=== PATIENT | female | born 1960 | race Caucasian/White ===

== ENCOUNTER → 2017-10-14 16:07 | Outpatient (CLI) | payer BC, SELFPAY ==
--- NOTE | 2017-10-14 | CT_ITS ---
CT abdomen pelvis w con Ordering Physician: Carola Heart MD Patient Age: 57 years: Female HISTORY: ITS.REASON: DIVERTICULITISabdominal pain left lower quadrant TECHNIQUE: Helical CT scanning performed through the abdomen following 75 cc [id number]. Axial sagittal coronal reconstructions on CT workstation COMPARISON :No relevant studies FINDINGS LUNG BASES. Scant dependent atelectasis and minor scarring posterior lung bases. Vague barely evident faint 5 x 3 mm nodule at periphery RLL axial image 61 with more linear appearance on coronal image 37, thus most likely reflecting minimal areas of scarring here. Similar small pleural-based area of density axial slice 16 at the anterior aspect of lingulal measures just over 4 mm size. Other smaller areas of pleural-based focal density noted most likely compatible with scarring.. . Follow-up CT chest suggested for these features. Very Tiny right Bochdalek hernia also noted Liver. Mild diffuse fatty changes with with additional slight focal fatty change adjacent to the falciform ligament anteriorly left lobe. No biliary ductal dilatation. Cholecystectomy. Pancreas satisfactory. Unremarkable. Spleen normal size with granulomatous calcifications. Right Adrenal Nodule: 34 mm AP x22. mm transverse x30 mm height. It slight increasedIndeterminate density on this postcontrast study. Will benefit from follow-up CT- with adrenal protocol scan precontrast; and if needed postcontrast scanning to further evaluate this feature.. The left adrenal is normal. Kidneys. Benign 10 mm renal cyst posterior left kidney. Right kidney unremarkable. No urinary tract calculi or obstruction. . acute diverticulitis at the distal descending colon at its its junction with the sigmoid colon. Nicely seen on coronal images 27-36, and axial images 76-87. There is bowel wall thickening within inflamed very distended diverticulum I believe extending medial from this area on coronal image 32.. Generous inflammatory stranding and hazy appearance throughout the paracolic fatthroughout this region,. No perforation but no discrete abscess as of yet. The extensive diverticulosis throughout the sigmoid colon otherwise noted with numerous diverticuli throughout the descending colon. Images reviewed with Dr. Heart at the monitor, workstation. Mild to moderate stool is seen at the right and transverse colon and less evident at descending colon. Small bowel appears otherwise satisfactory. Scattered diverticuli also seen at the transverse: and with a few at right colon. The become more numerous continuing distally into the descending colon and most extensive diverticulosis at the sigmoid colon. Appendix normal. On the uterus unremarkable no masses. No free fluid at pelvis No free fluid. No free air Dextroscoliosis lumbar spine. Degenerative disc space narrowing and spondylosis most notable L5/S1. And prominent facet hypertrophy at this level yield moderate recess and foraminal encroachment bilateral. Less pronounced facet hypertrophy at levels above this cannot L-spine. \ IMPRESSION 1. ACUTE DIVERTICULITIS.. ... Descending colon at junction with sigmoid colon ... Prominent pericolic inflammation associated with Distended inflamed diverticulum,. No perforation nor discrete abscess at this point 2.. Indeterminate Right Adrenal Nodule measures up to 3.4 cm AP Suggest follow-up CT adrenal protocol pre& if needed postcontrast given the size & appearance right adrenal nodule. It follow-up CT chest at that time warranted as well 3.. Tiny focal densities instantly noted at lung bases. Suspect Most likely related to scarring but would benefit from follow-up.
[2017-10-14 17:03] LABS: Blood Urea Nitrogen 19 mg/dL (7-18); Creatinine,Serum 0.98 mg/dL (0.55-1.02); Estimated Glomerular Filt Rate 59 ml/min (>60); GFR (African American) 71 ML/MIN (>60)
== END ==
PROVIDERS: PCP Family Medicine; Visit Provider Family Medicine
DX: K57.92 Diverticulitis of intestine, part unspecified, without perforation or abscess without bleeding (principal)
CPT/HCPCS: 36415; 74177; 82565; 84520; Q9967

== ENCOUNTER → 2018-10-24 08:16 | Outpatient (CLI) | payer BC, SELFPAY ==
--- NOTE | 2018-10-24 08:18 | MM_ITS ---
MM Dig screening mamm BI w/CAD CAD Screening COMPARISON: Digital mammograms with CAD 01/04/2014 and 05/04/2016 INDICATION: There is no personal or family history of breast cancer TECHNIQUE: Standard CC and MLO images were obtained. R2 CAD reviewed. FINDINGS: Prominent diffuse heterogenic fibroglandular densities are seen throughout both breasts. There are couple benign-appearing microcalcifications in each breast. There are stable benign-appearing nodular density near the axillary tail right breast. There is no suspicious lesion and there are no suspicious microcalcifications. IMPRESSION: Prominent diffuse breast density with no suspicious lesion seen BI-RADS Category: 2 Benign Finding(s) RECOMMENDED FOLLOW-UP: 1YR - 1 YEAR FOLLOW-UP (A letter has been sent to the patient regarding results of the study.)
== END ==
PROVIDERS: PCP Family Medicine; Visit Provider Nurse Practitioner Obstetrics & Gynecology
DX: Z12.31 Encounter for screening mammogram for malignant neoplasm of breast (principal)
CPT/HCPCS: 77067

== ENCOUNTER → 2020-12-13 10:19 | Outpatient (CLI) | payer BC, SELFPAY ==
[2020-12-13 11:30] LABS: Chloride 99 mmol/L (98-107); Sodium 139 mmol/L (136-145)
[2020-12-13 11:32] LABS: Alanine Aminotransferase 24 U/L (12-78); Alkaline Phosphatase 56 U/L (38-126); Aspartate Amino Transferase 33 U/L (14-36); Bilirubin,Total 0.7 mg/dl (0.2-1.3); Blood Urea Nitrogen 25 mg/dl (7-17); Estimated Glomerular Filt Rate 73 ml/min (>60); GFR (African American) 89 ML/MIN (>60)
[2020-12-13 11:33] LABS: Albumin Level 4.7 g/dl (3.5-5.0); Albumin/Globulin Ratio 1.9 (1.1-1.8); Calcium 9.8 mg/dl (8.4-10.2); Carbon Dioxide 34 mmol/L (22.0-30.0); Chol/HDL Ratio 3.3 (1-3.5); Cholesterol 210 mg/dl (140-200); Globulin 2.5 g/dL (1.3-3.2); Glucose 95 mg/dl (74-100); HDL Cholesterol 64 mg/dl (40-60); Total Protein,Serum 7.2 g/dl (6.3-8.2); Triglycerides 140 mg/dl (30-150); VLDL Cholesterol 28 mg/dL (0-40)
[2020-12-13 11:44] LABS: Direct LDL Cholesterol 106.57 mg/dL (100-129)
[2020-12-13 11:51] LABS: Free T4 (Free Thyroxine) 1.38 ng/dl (0.78-2.19)
[2020-12-13 12:04] LABS: Thyroid Stimulating Hormone 1.49 uIU/mL (0.465-4.68)
== END ==
PROVIDERS: Visit Provider Physician Assistant
DX: I10 Essential (primary) hypertension (principal); E89.0 Postprocedural hypothyroidism; Z13.220 Encounter for screening for lipoid disorders; Z79.899 Other long term (current) drug therapy
CPT/HCPCS: 36415; 80053; 80061; 84439; 84443

== ENCOUNTER → 2020-12-14 10:09 | Outpatient (CLI) | payer BC, SELFPAY ==
--- NOTE | 2020-12-14 10:13 | MM_ITS ---
PROCEDURE INFORMATION: Exam: MG Screening 3D Mammography Exam date and time: 12/14/2020 10:13 AM Age: 60 years old Clinical indication: Encounter for screening mammogram for malignant neoplasm of breast TECHNIQUE: Imaging protocol: Screening tomosynthesis and 2D mammography including computer-aided detection (CAD) when performed. COMPARISON: 1. MG SCBI MM Dig screening mamm BI w/CAD 10/24/2018 8:35 AM 2. MG DMSB DIG MAMM-SCREEN WILIAN 05/04/2016 8:28 AM 3. MG DMSB DIG MAMM-SCREEN WILIAN 01/04/2014 8:27 AM FINDINGS: MAMMOGRAPHY: Breast composition: The breasts are heterogeneously dense, which may obscure small masses. Mass: No new suspicious masses. Architectural distortion: No suspicious distortion. Calcifications: No suspicious calcifications. Asymmetric density: None. Skin thickening: None. Axillary adenopathy: None. IMPRESSION: No mammographic evidence of malignancy. Annual screening is recommended unless otherwise clinically indicated. ASSESSMENT: BI-RADS Category 1: Negative
== END ==
PROVIDERS: PCP Family Medicine; Visit Provider Physician Assistant
DX: Z12.31 Encounter for screening mammogram for malignant neoplasm of breast (principal)
CPT/HCPCS: 77063; 77067

== ENCOUNTER → 2021-08-29 11:06 | Outpatient (CLI) | payer BC, SELFPAY | PROVIDERS: Visit Provider Nurse Practitioner | DX: Z20.822 Contact with and (suspected) exposure to COVID-19 (principal) | CPT/HCPCS: C9803; U0003; U0005 ==

== ENCOUNTER → 2022-01-11 12:29 | Outpatient (CLI) | payer BC, SELFPAY | PROVIDERS: Visit Provider Nurse Practitioner Family | DX: B35.1 Tinea unguium (principal) | CPT/HCPCS: 87220 ==

== ENCOUNTER 2022-01-24 09:26 | Emergency (ER) | payer BC, SELFPAY ==
[2022-01-24 09:45] VITALS: BP 177/80; PULSE 68; RESP 17; TEMP 36.9; O2SAT 100; BMI 30.8
--- NOTE | 2022-01-24 09:54 | HMH.EDUTC ---
[facility] [place]position Clinical Impression: Vertigo Otitis media Qualifiers: Otitis media type: suppurative Chronicity: acute Laterality: bilateral Recurrence: non-recurrent Spontaneous tympanic membrane rupture: without spontaneous rupture Qualified Code(s): H66.003 - Acute suppurative otitis media without spontaneous rupture of ear drum, bilateral Sinusitis Qualifiers: Sinusitis location: unspecified location Chronicity: acute Recurrence: non-recurrent Qualified Code(s): J01.90 - Acute sinusitis, unspecified Disposition: Home, Self-Care Condition on Discharge: Good Instructions: Middle Ear Infection, DI for Sinusitis Additional Instructions: Drink plenty of fluids. Take tylenol or ibuprofen for pain or fever. Take the medications as directed. Follow up with your regular doctor. GO TO THE ER FOR ANY WORSENING SYMPTOMS The meclizine (antivert) will make you drowsy, so don't drive or operate heavy machinery after taking it. Prescriptions: Meclizine HCl [Meclizine 25mg Tab] 25 mg PO Q6HP PRN #30 tab PRN Reason: Dizziness Transmission Status: Received by [id number] Amoxicillin [Amoxicillin 875MG Tab] 875 mg PO Q12H #20 tab Transmission Status: Received by [id number] methylPREDNISolone [Medrol] 4 mg PO DIRECTED 6 Days #21 packet Transmission Status: Received by [id number] Referrals: Carola Heart MD [Primary Care Provider] - Time of Disposition: 10:10 Medical Decision Making - Medical Records Medical records reviewed: No: I reviewed the patient's medical records. - Alexandre Inquiry Pt receiving controlled substance: No Vital Signs: 01/24/22 09:45 01/24/22 10:16 Temperature 98.5 F 98.5 F Temperature Source Oral Pulse Rate 68 Pulse Rate [Left Radial] 68 Respiratory Rate 17 17 Blood Pressure 135/80 Blood Pressure [Right Arm] 177/80 H Blood Pressure Mean [Right Arm] 112 02 Sat by Pulse Oximetry 100 [facility] [place] HPI - General Stated complaint: dizzy, ringing in left ear Time Seen by Provider: 01/24/22 09:54 Source of Information: Patient Description of Symptoms (Recalled from Triage Doc. by RN): patient comes in today with complaints of dizziness, ringing in left ear, and nausea. patient states it has been going on for a few days, but this morning she felt worse. HEENT Symptoms (Recalled from RN notes): Yes Resp Symptoms (Recalled from RN notes): No Skin Symptoms (Recalled from RN notes): No MS Symptoms (Recalled from RN notes): No Functional Status (Recalled from RN notes): wnl - History of Present Illness Provider Complaint: She c/o left ear pain, pressure and intermittent ringing in her left ear for the past 3 days. - Related Data Home Medications Medication Instructions Recorded Confirmed triamterene 37.5 37.5 mg PO DAILY 90 Days #90 04/02/18 11/21/18 mg-hydrochlorothiazide 25 mg tablet bupropion HCl 150 mg tablet,12 hr 150 mg PO each 01/11/22 01/11/22 sustained-release duloxetine 30 mg capsule,delayed 30 mg PO cap 01/11/22 01/11/22 release levothyroxine 150 mcg tablet 150 mcg PO tab 01/11/22 01/11/22 losartan 25 mg tablet 25 mg PO tab 01/11/22 01/11/22 Previous Rx's Medication Instructions Recorded Amoxicillin [Amoxicillin 875MG 875 mg PO Q12H #20 tab 01/24/22 Tab] Meclizine HCl [Meclizine 25mg Tab] 25 mg PO Q6HP PRN #30 tab 01/24/22 methylPREDNISolone [Medrol] 4 mg PO DIRECTED 6 Days #21 01/24/22 packet Allergies Allergy/AdvReac Type Severity Reaction Status Date / Time No Known Allergies Allergy Verified 01/24/22 09:50 - Worker's Comp Is this a Worker's Comp case?: No [facility] History - Hepatitis A Screen Attestation statement:: This patient has been screened for Hepatitis A risk factors. I have reviewed the patient's past medical history: Yes Medical History: Reports:: Diabetes Mellitus Type 2, Hypertension Other Medical History: Reports: Hypothyroidism, Thyroid Disease Comment:
[2022-01-24 10:16] VITALS: BP 135/80; PULSE 68; RESP 17; TEMP 36.9
== END 2022-01-24 10:20 | disposition home or self-care (01) ==
PROVIDERS: Emergency Provider Nurse Practitioner Family; PCP Family Medicine
DX: R42 Dizziness and giddiness (principal); H66.003 Acute suppurative otitis media without spontaneous rupture of ear drum, bilateral; J01.90 Acute sinusitis, unspecified
CPT/HCPCS: 99212; G0463

== ENCOUNTER 2022-04-25 15:34 | Emergency (ER) | payer BC, SELFPAY ==
[2022-04-25 16:20] VITALS: BP 152/100; PULSE 83; RESP 20; TEMP 36.8; O2SAT 95; BMI 29.1
--- NOTE | 2022-04-25 16:54 | EXP.UTC ---
Discharge Plan Disposition Patient Disposition: Home, Self-Care Condition: Good Prescriptions Prescriptions: New azithromycin [Zithromax Z-Anton] 250 mg tablet See Rx Instructions .ROUTE .COMPLEX Qty: 6 0RF Rx Instructions: For 250 mg dose pack: take 500 mg today (day 1), then 250 mg for 4 days (days 2-5) No Action triamterene-hydrochlorothiazid 37.5-25 mg tablet 37.5 mg PO DAILY 90 Days Qty: 90 levothyroxine [Euthyrox] 150 mcg tablet 150 mcg PO losartan 25 mg tablet 25 mg PO Label Comments: TAKE 1 TABLET BY MOUTH ONCE DAILY bupropion HCl 150 mg tablet sustained-release 12 hr 150 mg PO duloxetine 30 mg capsule,delayed release(DR/EC) 30 mg PO amoxicillin 875 MG tablet 875 mg PO Q12H Qty: 20 0RF methylprednisolone 4 MG tablets,dose pack 4 mg PO DIRECTED 6 Days Qty: 21 0RF meclizine 25 MG tablet,chewable 25 mg PO Q6HP PRN (Reason: Dizziness) Qty: 30 0RF Referrals Follow up/Referrals: Carola Heart MD [Primary Care Provider] - See instructions Activity Restrictions/Add. Instructions Additional Instructions/Restrictions: Take medication as prescribed Return if needed Straight to ER if any life threatening symptoms Clinical Impressions Clinical Impression: Sinusitis Discharge ED Provider: Carmita Dumas [facility] General Stated complaint: runny nose, congestion Mode of Arrival: Ambulatory Source of Information: Patient Limitations: No Limitations Time Seen by Provider: 04/25/22 16:54 Description of Symptoms (Recalled from Triage Doc. by RN): PATIENT C/O SINUS CONGESTION, RUNNY NOSE, COUGH AND FATIGUE FOR OVER 1 WEEK HEENT Symptoms (Recalled from RN notes): Yes Resp Symptoms (Recalled from RN notes): Yes Skin Symptoms (Recalled from RN notes): No MS Symptoms (Recalled from RN notes): No Functional Status (Recalled from RN notes): WNL History of Present Illness Provider Complaint: Patient states that she feels like she has a sinus infection States that she has been having sinus pain and pressure along with pain behind her eyes States that it has continued to get worse over the last week so today when she was still having symptoms she came in to get checked Related Data Home Medications Medication Instructions Recorded Confirmed triamterene 37.5 37.5 mg PO DAILY Hypertension 90 04/02/18 11/21/18 mg-hydrochlorothiazide 25 mg tablet days ##90 bupropion HCl 150 mg tablet,12 hr 150 mg PO 01/11/22 01/11/22 sustained-release duloxetine 30 mg capsule,delayed 30 mg PO 01/11/22 01/11/22 release levothyroxine 150 mcg tablet 150 mcg PO 01/11/22 01/11/22 (Euthyrox) losartan 25 mg tablet 25 mg PO 01/11/22 01/11/22 Previous Rx's Medication Instructions Recorded amoxicillin 875 mg tablet 875 mg PO Q12H #20 tabs 01/24/22 meclizine 25 mg chewable tablet 25 mg PO Q6HP PRN Dizziness #30 01/24/22 tabs methylprednisolone 4 mg tablets in 4 mg PO DIRECTED 6 days #21 01/24/22 a dose pack packets azithromycin 250 mg tablet See Rx Instructions PO .COMPLEX #6 04/25/22 (Zithromax Z-Anton) tabs Allergies Allergy/AdvReac Type Severity Reaction Status Date / Time No Known Allergies Allergy Verified 01/24/22 09:50 Worker's Comp Is this a Worker's Comp case?: No [facility] Medical History (Updated 04/25/22 @ 17:08 by Carmita Dumas APRN) Hypertension Surgical History (Updated 04/25/22 @ 16:31 by Marla Rodriguez RN) History of cholecystectomy History of thyroidectomy Social History (Updated 04/25/22 @ 16:31 by Marla Rodriguez RN) Smoking Status: Never smoker alcohol intake: current substance use type: denies use current occupational status: other Travel in the last 8 weeks: None household members: family housing: house ROS Obtained: Yes All systems reviewed & no additional complaints except as documented and Yes Systems reviewed as appropriate & no additional complaints except as document
[2022-04-25 17:22] VITALS: BP 152/100; PULSE 83; RESP 20; TEMP 36.8; O2SAT 95
== END 2022-04-25 17:30 | disposition home or self-care (01) ==
PROVIDERS: Emergency Provider Nurse Practitioner; PCP Family Medicine
DX: J32.9 Chronic sinusitis, unspecified (principal); R09.89 Other specified symptoms and signs involving the circulatory and respiratory systems
CPT/HCPCS: 96372; 99212; G0463

== ENCOUNTER → 2022-10-01 07:35 | Outpatient (CLI) | payer BC, OTHER, SELFPAY ==
[2022-10-01 08:43] LABS: Basophils # 0.2 K/mm3 (0-0.2); Basophils % 1.8 % (0.1-2.0); Eosinophils # 0.3 K/mm3 (0.0-0.4); Eosinophils % 3.5 % (0.1-12.0); Hematocrit 43.5 % (37.0-47.0); Hemoglobin 15.1 g/dL (12.2-16.2); Lymphocytes # 2.8 K/mm3 (0.7-4.5); Lymphocytes % 28.6 % (10-50); Mean Corpuscular HGB Conc 34.7 g/dL (31.8-35.4); Mean Corpuscular Hemoglobin 30.8 pg (27.0-31.2); Mean Corpuscular Volume 88.8 fl (81-99); Mean Platelet Volume 7.2 fl (7.4-10.4); Monocytes # 0.8 K/mm3 (0.1-1.0); Monocytes % 8.4 % (1.7-9.3); Neutrophils # 5.6 K/mm3 (1.8-7.8); Neutrophils % 57.7 % (37.0-80.0); Platelet Count 469 K/mm3 (142-424); Red Blood Count 4.89 M/mm3 (4.20-5.40); White Blood Count 9.7 K/mm3 (4.8-10.8)
[2022-10-01 09:37] LABS: Alanine Aminotransferase 20 U/L (12-78); Albumin Level 4.6 g/dl (3.5-5.0); Albumin/Globulin Ratio 1.8 (1.1-1.8); Alkaline Phosphatase 82 U/L (38-126); Anion Gap 8.7 mEq/L (5-15); Aspartate Amino Transferase 23 U/L (14-36); Bilirubin,Total 0.6 mg/dl (0.2-1.3); Blood Urea Nitrogen 20 mg/dl (7-17); Calcium 9.6 mg/dl (8.4-10.2); Carbon Dioxide 36 mmol/L (22.0-30.0); Chloride 98 mmol/L (98-107); Chol/HDL Ratio 3.7 (1-3.5); Cholesterol 208 mg/dl (140-200); Estimated Glomerular Filt Rate 64 ml/min (>60); GFR (African American) 77 ML/MIN (>60); Globulin 2.6 g/dL (1.3-3.2); Glucose 98 mg/dl (74-100); HDL Cholesterol 56 mg/dl (40-60); Potassium 4.7 mmoL/L (3.5-5.1); Sodium 138 mmol/L (136-145); Total Protein,Serum 7.2 g/dl (6.3-8.2); Triglycerides 137 mg/dl (30-150); VLDL Cholesterol 27 mg/dL (0-40)
[2022-10-01 09:48] LABS: Direct LDL Cholesterol 114.42 mg/dL (100-129)
[2022-10-01 10:05] LABS: Thyroid Stimulating Hormone 0.73 uIU/mL (0.465-4.68)
== END ==
PROVIDERS: PCP Internal Medicine; Visit Provider Internal Medicine
DX: I10 Essential (primary) hypertension (principal); E78.5 Hyperlipidemia, unspecified; E03.9 Hypothyroidism, unspecified
CPT/HCPCS: 36415; 80053; 80061; 84443; 85025

== ENCOUNTER → 2022-10-12 10:48 | Outpatient (CLI) | payer BC, SELFPAY ==
--- NOTE | 2022-10-12 10:48 | MM_ITS ---
PROCEDURE INFORMATION: Exam: MG Bilateral Screening 3D Mammography Exam date and time: 10/12/2022 10:45 AM Age: 62 years old Clinical indication: Screening mammogram TECHNIQUE: Imaging protocol: Bilateral Screening tomosynthesis and 2D mammography including computer-aided detection (CAD) when performed. COMPARISON: 1. MG MM DIG SCREENING MAMM BI W/CAD 12/14/2020 10:12 AM 2. MG SCBI MM Dig screening mamm BI w/CAD 10/24/2018 8:35 AM 3. MG DMSB DIG MAMM-SCREEN WILIAN 05/04/2016 8:28 AM 4. MG DMSB DIG MAMM-SCREEN WILIAN 01/04/2014 8:27 AM FINDINGS: MAMMOGRAPHY: Breast composition: There are scattered areas of fibroglandular density. Mass: None. Architectural distortion: No new or suspicious architectural distortion. Calcifications: No new or suspicious calcifications are present Asymmetric density: No new or suspicious asymmetric density is present Skin thickening: None. Axillary adenopathy: None. IMPRESSION: No mammographic evidence of malignancy. Recommend annual screening mammography unless otherwise clinically indicated. ASSESSMENT: BI-RADS category 1: Negative
== END ==
PROVIDERS: PCP Internal Medicine; Visit Provider Nurse Practitioner Obstetrics & Gynecology
DX: Z12.31 Encounter for screening mammogram for malignant neoplasm of breast (principal)
CPT/HCPCS: 77063; 77067

== ENCOUNTER → 2023-01-30 14:48 | Outpatient (CLI) | payer BC, SELFPAY ==
[2023-01-30 16:20] LABS: Basophils # 0.1 K/mm3 (0-0.2); Basophils % 0.8 % (0.1-2.0); Eosinophils # 0.1 K/mm3 (0.0-0.4); Eosinophils % 1.4 % (0.1-12.0); Hematocrit 43.2 % (37.0-47.0); Hemoglobin 13.5 g/dL (12.2-16.2); Lymphocytes # 2.7 K/mm3 (0.7-4.5); Lymphocytes % 27.8 % (10-50); Mean Corpuscular HGB Conc 31.3 g/dL (31.8-35.4); Mean Corpuscular Hemoglobin 28.4 pg (27.0-31.2); Mean Corpuscular Volume 90.7 fl (81-99); Mean Platelet Volume 8.5 fl (7.4-10.4); Monocytes # 0.8 K/mm3 (0.1-1.0); Monocytes % 8.1 % (1.7-9.3); Platelet Count 475 K/mm3 (142-424); Red Blood Count 4.77 M/mm3 (4.20-5.40); Red Cell Distribution Width 13.3 % (11.5-17.5); White Blood Count 9.6 K/mm3 (4.8-10.8)
== END ==
PROVIDERS: PCP Internal Medicine; Visit Provider Internal Medicine
DX: R79.89 Other specified abnormal findings of blood chemistry (principal); I10 Essential (primary) hypertension
CPT/HCPCS: 85025

== ENCOUNTER → 2023-03-21 10:26 | Outpatient (CLI) | payer BC, SELFPAY ==
[2023-03-21 11:02] LABS: Basophils # 0.1 K/mm3 (0-0.2); Basophils % 0.9 % (0.1-2.0); Eosinophils # 0.2 K/mm3 (0.0-0.4); Eosinophils % 2.1 % (0.1-12.0); Hematocrit 42.5 % (37.0-47.0); Hemoglobin 13.2 g/dL (12.2-16.2); Lymphocytes % 32.5 % (10-50); Mean Corpuscular HGB Conc 31.1 g/dL (31.8-35.4); Mean Corpuscular Hemoglobin 27.8 pg (27.0-31.2); Mean Corpuscular Volume 89.1 fl (81-99); Mean Platelet Volume 7.3 fl (7.4-10.4); Monocytes # 0.8 K/mm3 (0.1-1.0); Monocytes % 8.3 % (1.7-9.3); Neutrophils # 5.2 K/mm3 (1.8-7.8); Neutrophils % 56.3 % (37.0-80.0); Platelet Count 479 K/mm3 (142-424); Red Blood Count 4.77 M/mm3 (4.20-5.40); White Blood Count 9.2 K/mm3 (4.8-10.8)
[2023-03-21 16:07] LABS: Iron 69 ug/dL (37-170)
[2023-03-21 16:17] LABS: Total Iron Binding Capacity 367 ug/dL (265-497)
[2023-03-21 16:43] LABS: Ferritin 33.2 ng/ml (11.1-264)
== END ==
PROVIDERS: PCP Internal Medicine; Visit Provider Internal Medicine Medical Oncology
DX: D75.839 Thrombocytosis, unspecified (principal)
CPT/HCPCS: 36415; 81270; 82728; 83540; 83550; 85025

== ENCOUNTER → 2023-06-25 13:54 | Outpatient (POV) | payer BC, SELFPAY | PROVIDERS: Visit Provider Specialist/Technologist | DX: Z00.00 Encounter for general adult medical examination without abnormal findings (principal) ==

== ENCOUNTER → 2023-07-04 15:30 | Outpatient (CLI) | payer BC, SELFPAY ==
[2023-07-04 15:51] LABS: Basophils # 0.1 K/mm3 (0-0.2); Basophils % 1.1 % (0.1-2.0); Eosinophils # 0.1 K/mm3 (0.0-0.4); Eosinophils % 1.1 % (0.1-12.0); Hematocrit 44.8 % (37.0-47.0); Hemoglobin 15.4 g/dL (12.2-16.2); Lymphocytes # 3.5 K/mm3 (0.7-4.5); Lymphocytes % 32.2 % (10-50); Mean Corpuscular HGB Conc 34.3 g/dL (31.8-35.4); Mean Corpuscular Hemoglobin 31.2 pg (27.0-31.2); Mean Corpuscular Volume 90.8 fl (81-99); Mean Platelet Volume 7.5 fl (7.4-10.4); Monocytes # 0.6 K/mm3 (0.1-1.0); Monocytes % 5.3 % (1.7-9.3); Neutrophils # 6.5 K/mm3 (1.8-7.8); Neutrophils % 60.2 % (37.0-80.0); Platelet Count 391 K/mm3 (142-424); Red Blood Count 4.93 M/mm3 (4.20-5.40); Red Cell Distribution Width 14.1 % (11.5-17.5); White Blood Count 10.8 K/mm3 (4.8-10.8)
== END ==
PROVIDERS: PCP Internal Medicine; Visit Provider Internal Medicine Medical Oncology
DX: D75.839 Thrombocytosis, unspecified (principal)
CPT/HCPCS: 36415; 85025

== ENCOUNTER → 2023-07-12 11:53 | Outpatient (CLI) | payer BC, SELFPAY ==
[2023-07-12 12:29] LABS: Blood Urea Nitrogen 22 mg/dl (7-17); Estimated Glomerular Filt Rate 56 ml/min (>60); GFR (African American) 68 ML/MIN (>60)
== END ==
PROVIDERS: PCP Internal Medicine; Visit Provider Nurse Practitioner
DX: H91.8X3 Other specified hearing loss, bilateral (principal)
CPT/HCPCS: 36415; 82565; 84520

== ENCOUNTER → 2023-08-14 16:08 | Outpatient (POV) | payer BC, SELFPAY | PROVIDERS: PCP Internal Medicine; Visit Provider Specialist/Technologist | DX: Z00.00 Encounter for general adult medical examination without abnormal findings (principal) ==

== ENCOUNTER 2023-10-01 16:27 | Outpatient (CLI) | payer BC, SELFPAY ==
[2023-10-01 17:43] LABS: Alanine Aminotransferase 22 U/L (12-78); Albumin Level 4.7 g/dl (3.5-5.0); Albumin/Globulin Ratio 1.8 (1.1-1.8); Alkaline Phosphatase 64 U/L (38-126); Anion Gap 12.5 mEq/L (5-15); Aspartate Amino Transferase 30 U/L (14-36); Bilirubin,Total 0.4 mg/dl (0.2-1.3); Blood Urea Nitrogen 23 mg/dl (7-17); Calcium 9.6 mg/dl (8.4-10.2); Carbon Dioxide 31 mmol/L (22.0-30.0); Chloride 98 mmol/L (98-107); Cholesterol 256 mg/dl (140-200); Estimated Glomerular Filt Rate 56 ml/min (>60); GFR (African American) 68 ML/MIN (>60); Globulin 2.6 g/dL (1.3-3.2); Glucose 88 mg/dl (74-100); HDL Cholesterol 51 mg/dl (40-60); Potassium 4.5 mmoL/L (3.5-5.1); Sodium 137 mmol/L (136-145); Total Protein,Serum 7.3 g/dl (6.3-8.2); Triglycerides 266 mg/dl (30-150); VLDL Cholesterol 53 mg/dL (0-40)
[2023-10-01 17:45] LABS: Basophils # 0.1 K/mm3 (0-0.2); Basophils % 0.7 % (0.1-2.0); Eosinophils # 0.1 K/mm3 (0.0-0.4); Eosinophils % 0.7 % (0.1-12.0); Hematocrit 45.9 % (37.0-47.0); Hemoglobin 15.7 g/dL (12.2-16.2); Lymphocytes # 3.6 K/mm3 (0.7-4.5); Lymphocytes % 28.7 % (10-50); Mean Corpuscular HGB Conc 34.3 g/dL (31.8-35.4); Mean Corpuscular Hemoglobin 30.8 pg (27.0-31.2); Mean Corpuscular Volume 89.8 fl (81-99); Mean Platelet Volume 8.9 fl (7.4-10.4); Monocytes # 0.7 K/mm3 (0.1-1.0); Monocytes % 5.9 % (1.7-9.3); Platelet Count 393 K/mm3 (142-424); Red Blood Count 5.12 M/mm3 (4.20-5.40); Red Cell Distribution Width 12.9 % (11.5-17.5); White Blood Count 12.6 K/mm3 (4.8-10.8)
[2023-10-01 17:54] LABS: Direct LDL Cholesterol 138.14 mg/dL (100-129)
[2023-10-01 17:58] LABS: Free T4 (Free Thyroxine) 0.27 ng/dl (0.78-2.19)
== END 2023-10-01 23:59 ==
LOC: LAB.DROPOF 16:28
PROVIDERS: PCP Internal Medicine; Visit Provider Internal Medicine
DX: I10 Essential (primary) hypertension (principal); E78.5 Hyperlipidemia, unspecified; R79.89 Other specified abnormal findings of blood chemistry; Z85.850 Personal history of malignant neoplasm of thyroid
CPT/HCPCS: 80053; 80061; 84439; 84443; 85025

== ENCOUNTER 2023-10-10 08:14 | Emergency (ER) | payer BC, SELFPAY ==
[2023-10-10 08:55] VITALS: BP 139/90; PULSE 76; RESP 18; TEMP 37.1; O2SAT 98; BMI 34.0
--- NOTE | 2023-10-10 09:24 | EXP.UTC ---
Discharge Plan Disposition Patient Disposition: Home, Self-Care Condition: Good Prescriptions Prescriptions: New mupirocin 2 % ointment 1 applic topical TID 10 Days Qty: 22 0RF Rx Instructions: apply to skin around right finger nail and places on arm as directed No Action azelastine 137 mcg (0.1 %) aerosol,spray 2 spray intranasal BID Qty: 30 3RF Rx Instructions: administer into each nostril triamterene-hydrochlorothiazid 37.5-25 mg tablet 37.5 mg PO DAILY 90 Days Qty: 90 losartan 25 mg tablet 25 mg PO Patient Comments: TAKE 1 TABLET BY MOUTH ONCE DAILY Adthyza 65 mg tablet 65 mg PO DAILY levothyroxine 150 mcg tablet PO Patient Comments: TAKE ONE Tablet BY MOUTH EVERY DAY ON AN EMPTY STOMACH Referrals Follow up/Referrals: Felipe Murphy MD [Primary Care Provider] - See instructions Activity Restrictions/Add. Instructions Additional Instructions/Restrictions: Clean area well with warm water and antibacterial soap and water Apply topical Mupirocin ointment around fingernail as instructed, may also apply to areas on forearm Continue antiboitics as prescribed by your Family Doctor Follow up next week to get your Culture results and make sure that area is healing Follow up immediately if any worsening of redness, streaks, warmth Clinical Impressions Clinical Impression: Paronychia Instructions Patient Instructions: DI for Paronychia, Mupirocin Discharge ED Provider: Carmita Dumas [facility] General Stated complaint: right index finger infected Mode of Arrival: Ambulatory Source of Information: Patient Limitations: No Limitations Time Seen by Provider: 10/10/23 09:24 Description of Symptoms (Recalled from Triage Doc. by RN): PATIENT C/O POSSIBLE INFECTION TO RIGHT INDEX FINGER X 1 WEEK HEENT Symptoms (Recalled from RN notes): No Resp Symptoms (Recalled from RN notes): No Skin Symptoms (Recalled from RN notes): Yes MS Symptoms (Recalled from RN notes): No Functional Status (Recalled from RN notes): WNL History of Present Illness Provider Complaint: Patient states that she has been having an infection around her right index fingernail for about a week State that she seen her PCP and they drained it but it has filled back up and she is worried that she may still be infected so she came in States that she also has some small bump like areas on her right forearm not sure if it is related or just bites Related Data Home Medications Medication Instructions Recorded Confirmed triamterene 37.5 37.5 mg PO DAILY Hypertension 90 04/02/18 07/31/23 mg-hydrochlorothiazide 25 mg tablet days ##90 losartan 25 mg tablet 25 mg PO 01/11/22 07/31/23 thyroid (pork) 65 mg tablet 65 mg PO DAILY 03/21/23 07/31/23 (Adthyza) levothyroxine 150 mcg tablet mcg PO 07/09/23 07/31/23 Previous Rx's Medication Instructions Recorded azelastine 137 mcg (0.1 %) nasal 2 spray intranasal BID allergy 05/20/23 spray aerosol symptoms #30 mL mupirocin 2 % topical ointment 1 applic topical TID 10 days #22 10/10/23 grams Allergies Allergy/AdvReac Type Severity Reaction Status Date / Time No Known Allergies Allergy Verified 07/31/23 11:15 Worker's Comp Is this a Worker's Comp case?: No [facility] Disclaimer: The information contained in this section may have been updated after the patient was seen, as this information can be updated by other users. Medical History Asymmetrical hearing loss Dysfunction of eustachian tube Hypertension Left SNHL Otalgia of left ear Tinnitus Surgical History History of cholecystectomy History of thyroidectomy Family History Other Diabetes Social History Smoking Status: Never smoker alcohol intake: current substance use type: denies use current occupational status: other Travel in the last 8 weeks: None household members: family housing: house ROS Obtained: Yes All systems reviewed & no additional complaints except as documented and Yes Systems reviewed as appropriate & no additional complaints except as documented Constitutional Constitutional: Reports system reviewed and no additional complaints, except as documented and Reports as per HPI ENT Ears, Nose, Mouth, and Throat: Reports system reviewed and no additional complaints, except as documented and Reports as per HPI Cardiovascular Cardiovascular: Reports system reviewed and no additional complaints, except as documented and Reports as per HPI Respiratory Respiratory: Reports system reviewed and no additional complaints, except as documented and Reports as per HPI Gastrointestinal Gastrointestingal: Reports system reviewed and no additional complaints, except as documented and as per HPI Integumentary/Breasts Skin/Breast: Reports system reviewed and no additional complaints, except as documented and Reports as per HPI Comments: swelling and redness around right index finger and small bug bite like areas on her forearm Physical Exam General General appearance: alert and in no apparent distress ENT ENT exam: Present mucous membranes moist Respiratory Respiratory exam: Present normal lung sounds bilaterally; Absent respiratory distress or wheezes Cardiovascular Cardiovascular exam: Present regular rate, normal rhythm and normal heart sounds Expanded Upper Extremity Exam Right: Hand L/R back image: 1. mild redness and fluid filled area noted, culture obtained and sent to lab Neurological Exam Neurological exam: Present alert, oriented X3 and normal gait Skin Skin exam: Present other (small red raised bump like areas that appears like bug bites on right forearm) Medical Decision Making Alexandre Inquiry Pt receiving controlled substance: No Alexandre was queried for this patient: No Vital Signs: 10/10/23 08:55 Temperature 98.7 F Temperature Source Oral Pulse Rate [Left Brachial] 76 Respiratory Rate 18 Blood Pressure [Left Arm] 139/90 Blood Pressure Mean [Left Arm] 106 Blood Pressure Source [Left Arm] Automatic Cuff Blood Pressure Position [Left Arm] Sitting 02 Sat by Pulse Oximetry 98 Oxygen Delivery Method Room Air
[2023-10-10 09:34] VITALS: BP 139/90; PULSE 76; RESP 18; TEMP 37.1; O2SAT 98
== END 2023-10-10 09:38 | disposition home or self-care (01) ==
PROVIDERS: Emergency Provider Nurse Practitioner; PCP Internal Medicine
DX: L03.011 Cellulitis of right finger (principal); B96.89 Other specified bacterial agents as the cause of diseases classified elsewhere; I10 Essential (primary) hypertension
CPT/HCPCS: 87070; 87205; 99212; 99214; G0463

== ENCOUNTER 2023-12-30 13:18 | Outpatient (CLI) | payer BC, SELFPAY ==
[2023-12-30 14:45] LABS: Cholesterol 177 mg/dl (140-200); HDL Cholesterol 59 mg/dl (40-60); Triglycerides 165 mg/dl (30-150); VLDL Cholesterol 33 mg/dL (0-40)
[2023-12-30 14:55] LABS: Direct LDL Cholesterol 95.25 mg/dL (100-129)
== END 2023-12-30 23:59 | disposition home or self-care (01) ==
LOC: LAB.DROPOF 13:19
PROVIDERS: PCP Internal Medicine; Visit Provider Internal Medicine
DX: E03.9 Hypothyroidism, unspecified (principal); E78.5 Hyperlipidemia, unspecified
CPT/HCPCS: 80061; 84443

== ENCOUNTER 2024-03-10 14:52 | Outpatient (CLI) | payer BC, SELFPAY ==
--- NOTE | 2024-03-10 14:55 | MM_ITS ---
PROCEDURE INFORMATION: Exam: MG Bilateral Screening 3D Mammography Exam date and time: 03/10/2024 2:40 PM Age: 63 years old Clinical indication: Screening. No family history of breast cancer. TECHNIQUE: Imaging protocol: Bilateral Screening tomosynthesis and 2D mammography including computer-aided detection (CAD) when performed. COMPARISON: 1. MG MM DIG SCREENING MAMM BI W/CAD 10/12/2022 10:45 AM 2. MG MM DIG SCREENING MAMM BI W/CAD 12/14/2020 10:12 AM 3. MG SCBI MM Dig screening mamm BI w/CAD 10/24/2018 8:35 AM 4. MG DMSB DIG MAMM-SCREEN WILIAN 05/04/2016 8:28 AM FINDINGS: MAMMOGRAPHY: Breast composition: There are scattered areas of fibroglandular density. Mass: No suspicious mass. Architectural distortion: None. Calcifications: No suspicious calcifications. Asymmetric density: None. Skin thickening: None. Axillary adenopathy: None. IMPRESSION: No mammographic evidence of malignancy. Annual screening is recommended unless otherwise clinically indicated. ASSESSMENT: BI-RADS Category 1: Negative
== END 2024-03-10 23:59 | disposition home or self-care (01) ==
LOC: RAD 14:52
PROVIDERS: PCP Internal Medicine; Visit Provider Nurse Practitioner Obstetrics & Gynecology
DX: Z12.31 Encounter for screening mammogram for malignant neoplasm of breast (principal)
CPT/HCPCS: 77063; 77067

== ENCOUNTER 2024-04-01 14:15 | Outpatient (CLI) | payer BC, SELFPAY ==
[2024-04-01 19:26] LABS: Thyroid Stimulating Hormone 0.58 uIU/mL (0.465-4.68)
== END 2024-04-01 23:59 | disposition home or self-care (01) ==
LOC: LAB.DROPOF 04-02 11:16
PROVIDERS: PCP Internal Medicine; Visit Provider Internal Medicine
DX: E03.9 Hypothyroidism, unspecified (principal)
CPT/HCPCS: 84443

== ENCOUNTER 2024-09-14 09:57 | Emergency (ER) | payer BC, SELFPAY ==
[2024-09-14 10:05] VITALS: BP 129/76; PULSE 76; RESP 19; TEMP 36.7; O2SAT 98; BMI 26.6
--- NOTE | 2024-09-14 10:16 | EXP.UTC ---
Discharge Plan Disposition Patient Disposition: Home, Self-Care Condition: Good Prescriptions Prescriptions: New methylprednisolone [Medrol (Anton)] 4 mg tablets,dose pack See Rx Instructions .Route .COMPLEX 6 Days Qty: 21 0RF Rx Instructions: taper pack; amoxicillin-pot clavulanate 875-125 mg Tablet 1 tab PO Q12H Qty: 20 0RF No Action levothyroxine 150 mcg tablet 150 mcg PO DAILY Patient Comments: TAKE 1 TABLET BY MOUTH ONCE DAILY losartan 25 mg tablet 25 mg PO DAILY Patient Comments: TAKE 1 TABLET BY MOUTH IN THE MORNING triamterene-hydrochlorothiazid 37.5-25 mg tablet 1 tab PO DAILY Patient Comments: TAKE 1 TABLET BY MOUTH ONCE DAILY rosuvastatin 10 mg tablet 10 mg PO DAILY Patient Comments: TAKE 1 TABLET BY MOUTH ONCE DAILY thyroid (pork) [Adthyza] 60 mg tablet 60 mg PO DAILY Patient Comments: TAKE 1 TABLET BY MOUTH ONCE DAILY ON AN EMPTY STOMACH Referrals Follow up/Referrals: Felipe Murphy MD [Primary Care Provider] - See instructions Activity Restrictions/Add. Instructions Additional Instructions/Restrictions: Take medication as prescribed Follow up with your Family Doctor if no improvement or any worsening of symptoms Return if needed Straight to ER if any life threatening symptoms Clinical Impressions Clinical Impression: Sinusitis Instructions Patient Instructions: DI for Sinusitis, Sinusitis Print Language Print Language: Chinese Discharge ED Provider: Carmita Dumas [facility] General Stated complaint: sinus congestion, low grade fever, headache Mode of Arrival: Ambulatory Source of Information: Patient Limitations: No Limitations Time Seen by Provider: 09/14/24 10:16 Description of Symptoms (Recalled from Triage Doc. by RN): PATIENT C/O SINUS CONGESTION, HEADACHE, LOW-GRADE FEVER, AND FATIGUE X 1 WEEK HEENT Symptoms (Recalled from RN notes): Yes Resp Symptoms (Recalled from RN notes): No Skin Symptoms (Recalled from RN notes): No MS Symptoms (Recalled from RN notes): No Functional Status (Recalled from RN notes): WNL History of Present Illness Provider Complaint: Patient states that she has been having sinus pain and pressure that causes her teeth to hurt on and off for 3 weeks worse in the last week and having a low grade fever States that she thinks she may have a bad sinus infection Related Data Home Medications ?Medication ?Instructions ?Recorded ?Confirmed levothyroxine 150 mcg tablet 150 mcg PO DAILY 09/14/24 09/14/24 losartan 25 mg tablet 25 mg PO DAILY 09/14/24 09/14/24 rosuvastatin 10 mg tablet 10 mg PO DAILY 09/14/24 09/14/24 thyroid (pork) 60 mg tablet 60 mg PO DAILY 09/14/24 09/14/24 (Adthyza) triamterene 37.5 1 tab PO DAILY 09/14/24 09/14/24 mg-hydrochlorothiazide 25 mg tablet Previous Rx's ?Medication ?Instructions ?Recorded amoxicillin 875 mg-potassium 1 tab PO Q12H #20 tabs 09/14/24 clavulanate 125 mg tablet methylprednisolone 4 mg tablets in See Rx Instructions .Route 09/14/24 a dose pack (Medrol (Anton)) .COMPLEX 6 days #21 tabs Allergies Allergy/AdvReac Type Severity Reaction Status Date / Time No Known Allergies Allergy Verified 04/01/24 13:40 Worker's Comp Is this a Worker's Comp case?: No [facility] Disclaimer: The information contained in this section may have been updated after the patient was seen, as this information can be updated by other users. Medical History Asymmetrical hearing loss Left SNHL Dysfunction of eustachian tube Tinnitus Otalgia of left ear Hypertension Surgical History History of thyroidectomy History of cholecystectomy Family History Other Diabetes Social History Smoking Status: Never smoker alcohol intake: current alcohol intake frequency: 0-2 drinks per day substance use type: denies use current occupational status: other Travel in the last 8 weeks: None household members: family housing: house Have you lived/traveled outside US in past 30 days?: No Contact w/someone who lives/traveled outside US past 30 days?: No Exposure to someone with infectious disease in past 14 days?: No Do you have a fever (greater than 100.4 F or 38 C)?: No Have you tested positive for COVID-19: No Exposed to someone with COVID-19 in past 14 days?: No Do you have a sore throat?: No Do you have a cough?: No Do you have any weakness?: No Do you have any diarrhea?: No Are you experiencing any unusual bleeding?: No Do you have any muscle aches/pain?: No Do you have any abdominal pain?: No Are you experiencing loss of taste or smell?: No ROS Obtained: Yes All systems reviewed & no additional complaints except as documented and Yes Systems reviewed as appropriate & no additional complaints except as documented Constitutional Constitutional: Reports system reviewed and no additional complaints, except as documented, Reports as per HPI and Reports headache(s) ENT Ears, Nose, Mouth, and Throat: Reports system reviewed and no additional complaints, except as documented, Reports as per HPI, Reports headache(s), Reports sinus pain and Reports sinus pressure Cardiovascular Cardiovascular: Reports system reviewed and no additional complaints, except as documented and Reports as per HPI Respiratory Respiratory: Reports system reviewed and no additional complaints, except as documented and Reports as per HPI Gastrointestinal Gastrointestingal: Reports system reviewed and no additional complaints, except as documented and as per HPI Musculoskeletal Musculoskeletal: Reports system reviewed and no additional complaints, except as documented and Reports as per HPI Neurologic Neurologic: Reports headache(s) Physical Exam General General appearance: alert and in no apparent distress ENT ENT exam: Present mucous membranes moist Expanded ENT Exam Nose exam: Present sinus tenderness Mouth exam: Present normal external inspection Teeth exam: Present normal inspection Respiratory Respiratory exam: Present normal lung sounds bilaterally; Absent respiratory distress or wheezes Cardiovascular Cardiovascular exam: Present regular rate, normal rhythm and normal heart sounds Abdominal Exam Abdominal exam: Present soft and normal bowel sounds; Absent distention or tenderness Neurological Exam Neurological exam: Present alert, oriented X3 and normal gait Medical Decision Making Medical Records Screening: Per USPSTF and CDC recommendations, given the prevalence of disease in our region, it is our hospital?s policy to screen for HIV and viral Hepatitis for all patients aged 18 and over and those with ongoing risk factors. Alexandre Inquiry Pt receiving controlled substance: No Alexandre was queried for this patient: No Vital Signs: 09/14/24 10:05 Temperature 98.0 F Temperature Source Oral Pulse Rate [Left Brachial] 76 Respiratory Rate 19 Blood Pressure [Left Arm] 129/76 Blood Pressure Mean [Left Arm] 93 Blood Pressure Source [Left Arm] Automatic Cuff Blood Pressure Position [Left Arm] Sitting 02 Sat by Pulse Oximetry 98 Oxygen Delivery Method Room Air
[2024-09-14 10:20] VITALS: BP 129/76; PULSE 76; RESP 19; TEMP 36.7; O2SAT 98
== END 2024-09-14 10:24 | disposition home or self-care (01) ==
PROVIDERS: Emergency Provider Nurse Practitioner; PCP Internal Medicine
DX: J32.9 Chronic sinusitis, unspecified (principal)
CPT/HCPCS: 99213; G0381

== ENCOUNTER 2024-11-10 11:50 | Outpatient (CLI) | payer BC, SELFPAY ==
[2024-11-10 17:40] LABS: Basophils # 0.1 K/mm3 (0-0.2); Basophils % 0.9 % (0.1-2.0); Eosinophils # 0.1 K/mm3 (0.0-0.4); Eosinophils % 1.2 % (0.1-12.0); Hematocrit 48.7 % (37.0-47.0); Lymphocytes # 3.2 K/mm3 (0.7-4.5); Lymphocytes % 32.2 % (10-50); Mean Corpuscular HGB Conc 32.9 g/dL (31.8-35.4); Mean Corpuscular Hemoglobin 29.2 pg (27.0-31.2); Mean Corpuscular Volume 88.9 fl (81-99); Mean Platelet Volume 9.8 fl (7.4-10.4); Monocytes % 9.8 % (1.7-9.3); Neutrophils # 5.5 K/mm3 (1.8-7.8); Neutrophils % 55.5 % (37.0-80.0); Platelet Count 397 K/mm3 (142-424); Red Blood Count 5.48 M/mm3 (4.20-5.40); Red Cell Distribution Width 13.4 % (11.5-17.5); White Blood Count 9.9 K/mm3 (4.8-10.8)
[2024-11-10 17:43] LABS: Alanine Aminotransferase 20 U/L (12-78); Albumin Level 4.8 g/dl (3.5-5.0); Alkaline Phosphatase 52 U/L (38-126); Anion Gap 13.7 mEq/L (5-15); Aspartate Amino Transferase 23 U/L (14-36); Bilirubin,Total 0.8 mg/dl (0.2-1.3); Blood Urea Nitrogen 16 mg/dl (7-17); Calcium 9.7 mg/dl (8.4-10.2); Carbon Dioxide 30 mmol/L (22.0-30.0); Chloride 99 mmol/L (98-107); Chol/HDL Ratio 4.1 (1-3.5); Cholesterol 224 mg/dl (140-200); Estimated Glomerular Filt Rate 72 ml/min (>60); GFR (African American) 88 ML/MIN (>60); Globulin 2.4 g/dL (1.3-3.2); Glucose 70 mg/dl (74-100); HDL Cholesterol 55 mg/dl (40-60); Potassium 4.7 mmoL/L (3.5-5.1); Sodium 138 mmol/L (136-145); Total Protein,Serum 7.2 g/dl (6.3-8.2); Triglycerides 170 mg/dl (30-150); VLDL Cholesterol 34 mg/dL (0-40)
[2024-11-10 17:54] LABS: Direct LDL Cholesterol 127.06 mg/dL (100-129)
[2024-11-10 17:58] LABS: Free T4 (Free Thyroxine) 1.26 ng/dl (0.78-2.19)
[2024-11-10 18:13] LABS: Thyroid Stimulating Hormone 0.41 uIU/mL (0.465-4.68)
[2024-11-12 14:12] LABS: Triiodothyronine (T3) Free 3.4 pg/mL (2.0-4.4)
== END 2024-11-10 23:59 | disposition home or self-care (01) ==
LOC: LAB.DROPOF 11-11 14:02
PROVIDERS: PCP Internal Medicine; Visit Provider Internal Medicine
DX: E78.5 Hyperlipidemia, unspecified (principal); I10 Essential (primary) hypertension; E03.9 Hypothyroidism, unspecified
CPT/HCPCS: 80053; 80061; 84439; 84443; 84481; 85025

== ENCOUNTER 2025-04-13 11:25 | Outpatient (CLI) | payer BC, SELFPAY ==
--- OUTSIDE RECORDS SUMMARY | 2025-04-13 11:34 | XMS_ITS | Encounter Summary ---
Author Organization Healthcare Address [address] [place] [address] Care Team Providers Care Pharmacy Tech Name Role Phone Pcp, No Primary Care Provider Unavailabl e Encounter Details Date Type Department Care Team (Late st Contact Info) Description 01/27/2025 Outside Procedure [address] [address] Provider, External Social History Tobacco Use Types Packs/Day Years Used Date Smoking Tobacco: Never Assessed PHQ-2 Answer Date Recorded Patient Health Questionnaire-2 Score 0 04/04/2022 Comments Unknown Sex and Gender Information Value Date Recorded Sex Assigned at Not on file Legal Sex Female 6:29 PM EDT Gender Identity Not on file Sexual Orientation Not on file documented as of this encounter Plan of Treatment Not on file documented as of this encounter Procedures Procedure Name Priority Date/Time Associated Diagnosis Comments COLONOSCOPY 01/27/2025 9:05 AM EDT documented in this encounter Results * Colonoscopy (01/27/2025 9:05 AM EDT) Anatomical Region Laterality Modality Endoscopy 01/27/2025 8:27 AM EDT Impressions 01/27/2025 9:05 AM EDT Please see media tab for the result. Information added by interface. Narrative Procedure Note Fabiola Mayen MD - 01/27/2025 IMPRESSION: Please see media tab for the result. Information added by interface. us External Provider GI PROCEDURE ORDERABLES Final Result documented in this encounter Visit Diagnoses Not on filedocumented in this encounter Additional Health Concerns Assessment Noted Time A fall risk assessment has been complete d for the patient 07/09/2022 9:55 AM EST documented as of this encounter Care Teams Pharmacy Tech Relationship Specialty Start Date End Date Pcp, No [address] [place] [address] PCP - General Family Medicine 04/04/22 documented as of this encounter
--- OUTSIDE RECORDS SUMMARY | 2025-04-13 11:34 | XMS_ITS | Encounter Summary ---
Author Organization Healthcare Address [address] [place] [address] Care Team Providers Care Pin Sticker Name Role Phone Pcp, No Primary Care Provider Unavailabl e Encounter Details Date Type Department Care Team (Late st Contact Info) Description 01/27/2025 Lab Requisition [facility] [address] [place] [address] Fabiola Mayen MD [address] [facility] [address] [place] [address] Encounter for screening for malignant neoplasm of colon Social History Tobacco Use Types Packs/Day Years [...] Procedure Name Priority Date/Time Associated Diagnosis Comments SURGICAL PATHOLOGY EXAM Routine 01/27/2025 Encounter for screening for malignant neoplasm of colon documented in this encounter Results * Surgical Pathology Exam (01/27/2025) Case Report Surgical Pathology Case: [id number] Authorizing Provider: Fabiola Mayen, Collected: 01/27/2025 Ordering Location: [facility] Received: 01/27/2025 1118 Pathologist: Baron Lugo DO Specimens: A) - Ascending Colon, ascending polyp B) - Sigmoid Colon, sigmoid polyp 01/28/2025 4:13 PM EDT [facility] Final Diagnosis A. LARGE INTESTINE, ASCENDING COLON, POLYP, BIOPSY: - TUBULAR ADENOMAS (2). B. LARGE INTESTINE, SIGMOID COLON, POLYP, BIOPSY: - TUBULAR ADENOMA. 01/28/2025 4:13 PM EDT [facility] at 1613 EDT Clinical Information Encounter for screening for malignant neoplasm of colon Colonoscopy findings: - Two sessile polyps were found in the ascending colon. The polyps were 5 to 6 mm in size. - A 7 mm polyp was found in the sigmoid colon. The polyp was sessile. 01/28/2025 4:13 PM EDT [facility] Gross Description A. ASCENDING POLYP Received in formalin labeled a scending polyp , are 4 white-smyth soft tissue fragments that range from 0.3-0.7 cm in greatest dimension. Entirely submitted in cassette A1. Cold Time: 0 Sana B Pettey B. SIGMOID POLYP Received in formalin labeled s igmoid polyp , is 1 white-smyth soft tissue fragment measuring 0.7 cm in greatest dimension. Entirely submitted in cassette B1. Cold Time: 0 Sana B Pettey 01/28/2025 4:13 PM EDT [facility] Note: A resident was involved in the service. I attest I examined the relevant preparations for the specimens and confirmed the diagnosis or interpretation. 01/28/2025 4:13 PM EDT [facility] Tissue Sigmoid colon structure / Unknown 01/27/2025 01/27/2025 11:18 AM EDT Tissue specimen (specimen) Sigmoid colon structure / Unknown 01/27/2025 01/27/2025 11:18 AM EDT us Fabiola Martinez MD LAB PATHOLOGY ORDERAB LES Final Result [facility] [address] [place] [address] documented in this encounter Visit Diagnoses Diagnosis Encounter for screening for malignant neoplasm of colon documented in this encounter Additional Health Concerns Assessment Noted Time A fall risk assessment has been complete d for the patient 07/09/2022 9:55 AM EST documented as of this encounter Care Teams Pin Sticker Relationship Specialty Start Date End Date Pcp, Mei [address] [place] [address] PCP - General Family Medicine 8/17/22 documented as of this encounter
--- OUTSIDE RECORDS SUMMARY | 2025-04-13 11:34 | XMS_ITS | Clinical Summary ---
Author Organization Healthcare Address [address] [place] [address] Care Team Providers Care Knitting Machine Operator Automatic Name Role Phone Pcp, No Primary Care Provider Unavailabl e Allergies No known active allergies Medications Euthyrox 150 MCG tablet Take 150 mcg by mouth 1 (one) time each day. 2 Active losartan (Cozaar) 25 MG tablet Take 25 mg by mouth 1 (one) time each day. 2 Active phentermine (Adipex-P) 37.5 MG tablet Active triamterene-hyd rochlorothiazid e (Maxzide-25) 37.5-25 MG tablet Take 1 tablet by mouth 1 (one) time each day. 2 Active bisacodyl (Dulcolax) 5 MG EC tablet Take all 4 tablets at 4 PM on day before colonoscopy . Do not crush, chew, or split. 4 tablet 5 Active polyethylene glycol (Golytely) 236 g solution SEE PHARMACY NOTE FOR PT INSTRUCTIONS 4000 mL 5 Active Encounters Date Type Department Care Team Description 01/29/2025 Results [facility]Up [facility] [address] [place] [address] Fabiola Mayen MD 01/27/2025 Lab Requisition [facility] [address] [place] [address] Fabiola Mayen MD Encounter for screening for malignant neoplasm of colon 01/27/2025 Outside Procedure [facility] [address] [place] [id number] Provider, External from Last 3 Months Social History Tobacco Use Types Packs/Day Years Used Date Smoking Tobacco: Never Assessed PHQ-2 Answer Date Recorded Patient Health Questionnaire-2 Score 0 04/04/2022 Comments Unknown Sex and Gender Information Value Date Recorded Sex Assigned at Not on file Legal Sex Female 6:29 PM EDT Gender Identity Not on file Sexual Orientation Not on file Last Filed Vital Signs Vital Sign Reading Time Taken Comments Blood Pressure 139/81 07/09/2022 9:54 AM EST Pulse 78 04/04/2022 9:43 AM EDT Temperature - - Respiratory Rate - - Oxygen Saturation 97% 04/04/2022 9:43 AM EDT Inhaled Oxygen Concentration - - Weight 81.2 kg (179 lb) 07/09/2022 9:54 AM EST Height 170.2 cm (5' 7 ) 07/09/2022 9:54 AM EST Body Mass Index 28.04 07/09/2022 9:54 AM EST Plan of Treatment Health Maintenance Due Date Last Done Comments [facility]-HIV Screening 1961 [facility]-Hepatitis C Screening 1961 [facility]-Infant/Child/Adol SDOH Screenings 1961 [facility]- SDOH Screenings 1979 [facility]-Adult SDOH Screenings 1979 [facility]-Pap Smear 1982 [facility]-Cervical Cancer Screening 1991 [facility]-HPV/Cotest 1991 CT Colonography 2006 FIT-DNA 2006 FIT 2006 FOBT 2006 Sigmoidoscopy 2006 [facility]-Breast Cancer Screening 2011 [facility]-Pneumococcal Vaccine: 50 + Years (1 of 1 - PCV) 2011 [facility]-Zoster Vaccines (1 of 2) 2011 [facility]-SITSL-26 Vaccine (3 - Pfizer risk series) 12/16/2020 11/18/2020, 10/25/2020 [facility]-RSV Vaccine: 60+ Years o r (1 - Risk 60-74 years 1-dose series) 2021 [facility]-Depression Screening 04/04/2023 04/04/2022 [facility]-Influenza Vaccine (#1) 2025 [facility]-DTaP,Tdap,and Td Vaccine s (2 - Td or Tdap) 01/27/2029 01/27/2019 Colonoscopy 01/27/2035 01/27/2025, 01/27/2025, 01/05/2025 [facility]-Colorectal Cancer Screening 01/27/2035 [facility]-Obesity Intervention Completed 07/09/2022 HPV Vaccines Aged Out No longer eligi ble based on patient's age to complete this topic [facility]-HIB Vaccines Aged Out No longer e ligible based on patient's age to complete this topic [facility]-Hepatitis A Vaccines Aged Out No longer eligible based on patient's age to complete this topic [facility]-IPV Vaccines Aged Out No longer e ligible based on patient's age to complete this topic [facility]-Rotavirus Vaccines Aged Out No lo nger eligible based on patient's age to complete this topic Procedures Procedure Name Priority Date/Time Associated Diagnosis Comments COLONOSCOPY 01/27/2025 9:05 AM EDT SURGICAL PATHOLOGY EXAM Routine 01/27/2025 Encounter for screening for malignant neoplasm of colon from Last 3 Months Results * Colonoscopy (01/27/2025 9:05 AM EDT) Anatomical Region Laterality Modality Endoscopy 01/27/2025 8:27 AM EDT Impressions 01/27/2025 9:05 AM EDT Please see media tab for the result. Information added by interface. Narrative Procedure Note Fabiola Mayen MD - 01/27/2025 IMPRESSION: Please see media tab for the result. Information added by interface. us External Provider GI PROCEDURE ORDERABLES Final Result * Surgical Pathology Exam (01/27/2025) Case Report Surgical Pathology Case: [id number] Authorizing Provider: Fabiola Mayen, Collected: 01/27/2025 Ordering Location: [facility] Received: 01/27/2025 1118 Pathologist: Baron Lugo DO Specimens: A) - Ascending Colon, ascending polyp B) - Sigmoid Colon, sigmoid polyp 01/28/2025 4:13 PM EDT [facility] Final Diagnosis A. LARGE INTESTINE, ASCENDING COLON, POLYP, BIOPSY: - TUBULAR ADENOMAS (2). B. LARGE INTESTINE, SIGMOID COLON, POLYP, BIOPSY: - TUBULAR ADENOMA. 01/28/2025 4:13 PM EDT [facility] at 1613 EDT Clinical Information Encounter for screening for malignant neoplasm of colon Colonoscopy findings: - Two sessile polyps were found in the ascending colon. The polyps were 5 to 6 mm in size. - A 7 mm polyp was found in the sigmoid colon. The polyp was sessile. 01/28/2025 4:13 PM EDT [facility] Gross Description A. ASCENDING POLYP [...] Sana B Pettey 01/28/2025 4:13 PM EDT [facility] Note: A resident was involved in the service. I attest I examined the relevant preparations for the specimens and confirmed the diagnosis or interpretation. 01/28/2025 4:13 PM EDT [facility] Tissue Sigmoid colon structure / Unknown 01/27/2025 01/27/2025 11:18 AM EDT Tissue specimen (specimen) Sigmoid colon structure / Unknown 01/27/2025 01/27/2025 11:18 AM EDT us Fabiola Martinez MD LAB PATHOLOGY ORDERAB LES Final Result [facility] [address] [place] [address] from Last 3 Months Insurance ANTHEM Care Teams Knitting Machine Operator Automatic Relationship Specialty Start Date End Date Pcp, No [address] [place] [address] PCP - General Family Medicine 04/04/22
[2025-04-13 12:29] LABS: Free T4 (Free Thyroxine) 1.18 ng/dl (0.78-2.19)
[2025-04-13 12:42] LABS: Thyroid Stimulating Hormone 2.06 uIU/mL (0.465-4.68)
[2025-04-13 13:28] LABS: 25-OH Vitamin D, Total 28.7 ng/mL (30-100)
== END 2025-04-13 23:59 | disposition home or self-care (01) ==
LOC: LAB 11:26
PROVIDERS: PCP Internal Medicine; Visit Provider Student in an Organized Health Care Education/Training Program
DX: E03.9 Hypothyroidism, unspecified (principal); R53.83 Other fatigue; Z85.850 Personal history of malignant neoplasm of thyroid
CPT/HCPCS: 36415; 82306; 84439; 84443; 86800

== ENCOUNTER 2025-06-09 07:41 | Outpatient (CLI) | payer BC, SELFPAY ==
--- OUTSIDE RECORDS SUMMARY | 2025-06-09 07:43 | XMS_ITS | Encounter Summary ---
Author Organization Healthcare Address [address] [place] [address] Care Team Providers Care Armhole Raiser Lockstitch Name Role Phone Pcp, No Primary Care Provider Unavailabl e Encounter Details Date Type Department Care Team (Late st Contact Info) Description 01/27/2025 Outside Procedure [address] [address] Provider, External Social History Tobacco [...] documented as of this encounter Care Teams Armhole Raiser Lockstitch Relationship Specialty Start Date End Date Pcp, No [address] [place] [address] PCP - General Family Medicine 04/04/22 documented as of this encounter
--- OUTSIDE RECORDS SUMMARY | 2025-06-09 07:43 | XMS_ITS | Referral Summary ---
Author Organization [employer] ([place], [place], [place], [place]) Address [address] [place] [address] Care Team Providers Care Breading Machine Tender Name Role Phone Felipe Murphy MD Primary Care Provider [phone] Allergies No known active allergies Social History Tobacco Use Types Packs/Day Years Used Date Smoking Tobacco: Never Assessed Food Insecurity Answer Date Recorded Food run out past 12 months Not on file 08/19 Food did not last past 12 months Not on file 08/30/2023 Employment Answer Date Recorded Help finding and keeping a job Not on file 0 08/30/2023 Family and Community Support Answer Dima e Recorded Help with Day to Day Activities Not on file 08/30/2023 Feeling Lonely or Isolated Not on file 08/30 Educational Attainment Answer Date Alex rded Speak language other than [place]de[place] at home Not on file 08/30/2023 Want help with school or training Not on file 08/30/2023 Substance Use Answer Date Recorded Used prescription meds for non-medical reasons N ot on file 08/30/2023 Used illegal drugs past 12 months Not on file 08/30/2023 Comments Unknown Sex and Gender Information Value Date Recorded Sex Assigned at Not on file Legal Sex Female 7:32 PM CDT Gender Identity Not on file Sexual Orientation Not on file Last Filed Vital Signs Vital Sign Reading Time Taken Comments Blood Pressure - - Pulse - - Temperature - - Respiratory Rate - - Oxygen Saturation - - Inhaled Oxygen Concentration - - Weight 82.6 kg (182 lb) 07/17/2023 1:17 PM EST Height - - Body Mass Index - - Plan of Treatment Not on file Insurance BLUE CROSS/BLUE SHIELD Care Teams Breading Machine Tender Relationship Specialty Start Date End Date Felipe Murphy MD [address] [place] [address] PCP - General General Internal Medicine 07/09/23
--- OUTSIDE RECORDS SUMMARY | 2025-06-09 07:44 | XMS_ITS | Encounter Summary ---
Author Organization Healthcare Address [address] [place] [address] Care Team Providers Care Access Specialist Name Role Phone Pcp, No Primary Care Provider Unavailabl e Encounter Details Date Type Department Care Team (Late st Contact Info) Description 01/27/2025 Lab Requisition [facility] [address] [place] [address] Fabiola Mayen MD [address] [facility] [address] [place] [address] Encounter for screening for malignant [...] Exam (01/27/2025) Case Report Surgical Pathology Case: [id number] Authorizing Provider: Fabiola Mayen, Collected: 01/27/2025 Ordering Location: [facility] Received: 01/27/2025 1118 Pathologist: Baron Lugo DO Specimens: A) - Ascending Colon, ascending polyp B) - Sigmoid Colon, sigmoid polyp 01/28/2025 4:13 PM EDT [facility] Final Diagnosis A. LARGE INTESTINE, ASCENDING COLON, POLYP, BIOPSY: - TUBULAR ADENOMAS (2). B. LARGE INTESTINE, SIGMOID COLON, POLYP, BIOPSY: - TUBULAR ADENOMA. 01/28/2025 4:13 PM EDT [facility] at 1613 EDT Clinical Information Encounter for screening for malignant neoplasm of colon Colonoscopy findings: - Two sessile polyps were found in the ascending colon. The polyps were 5 to 6 mm in size. - A 7 mm polyp was found in the sigmoid colon. The polyp was sessile. 01/28/2025 4:13 PM EDT [facility] Gross Description A. ASCENDING POLYP [...] Sana B Pettey 01/28/2025 4:13 PM EDT [facility] Note: A resident was involved in the service. I attest I examined the relevant preparations for the specimens and confirmed the diagnosis or interpretation. 01/28/2025 4:13 PM EDT [facility] Tissue Sigmoid colon structure / Unknown 01/27/2025 01/27/2025 11:18 AM EDT Tissue specimen (specimen) Sigmoid colon structure / Unknown 01/27/2025 01/27/2025 11:18 AM EDT us Fabiola Martinez MD LAB PATHOLOGY ORDERAB LES Final Result [facility] [address] [place] [address] documented in this encounter Visit Diagnoses Diagnosis Encounter for screening for malignant neoplasm of colon documented in this encounter Additional Health Concerns Assessment Noted Time A fall risk assessment has been complete d for the patient 07/09/2022 9:55 AM EST documented as of this encounter Care Teams Access Specialist Relationship Specialty Start Date End Date Pcp, Mei [address] [place] [address] PCP - General Family Medicine 8/17/22 documented as of this encounter
--- OUTSIDE RECORDS SUMMARY | 2025-06-09 07:44 | XMS_ITS | Clinical Summary ---
Author Organization Healthcare Address [address] [place] [address] Care Team Providers Care Industrial Designer Name Role Phone Pcp, No Primary Care [...] FOR PT INSTRUCTIONS 4000 mL 5 Active Social History Tobacco Use Types Packs/Day Years [...] [facility]-HIV Screening 1961 [facility]-Hepatitis C Screening 1961 [facility]-/Child/Adol SDOH Screenings 1961 [facility]- SDOH Screenings 1979 [facility]-Adult SDOH Screenings 1979 [facility]-Pap Smear 1982 [facility]-Cervical Cancer Screening 1991 [facility]-HPV/Cotest 1991 CT Colonography 2006 FIT-DNA 2006 FIT 2006 FOBT 2006 Sigmoidoscopy 2006 [facility]-Breast Cancer Screening 2011 [facility]-Pneumococcal Vaccine: 50 + Years (1 of 1 - PCV) 2011 [facility]-Zoster Vaccines (1 of 2) 2011 ONI-ROQFH-80 Vaccine (3 - Pfizer risk series) 12/16/2020 [...] Diagnosis Comments COLONOSCOPY 01/27/2025 9:05 AM EDT from Last 3 Months or Most Recently Relevant to Health Maintenance Results * Colonoscopy (01/27/2025 9:05 AM EDT) Anatomical Region Laterality Modality Endoscopy 01/27/2025 8:27 AM EDT Impressions 01/27/2025 9:05 AM EDT Please see media tab for the result. Information added by interface. Narrative Procedure Note Fabiola Mayen MD - 01/27/2025 IMPRESSION: Please see media tab for the result. Information added by interface. us External Provider GI PROCEDURE ORDERABLES Final Result from Last 3 Months or Most Recently Relevant to Health Maintenance Insurance [facility] Care Teams Industrial Designer Relationship Specialty Start Date End Date Pcp, [place] [address] PCP - General Family Medicine 04/04/22
--- OUTSIDE RECORDS SUMMARY | 2025-06-09 07:44 | XMS_ITS | Clinical Summary ---
Author Organization [employer] ([place], [place], [place], [place]) Address [address] [place] [address] Care Team Providers Care Sole Sewer Hand Name Role Phone Felipe Murphy MD Primary Care Provider [phone] Allergies No known active allergies Social History [...] Date Alex rded Speak language other than Micronesian at home Not on file 08/30/2023 Want [...] Mass Index - - Plan of Treatment Health Maintenance Due Date Last Done Comments CT Colonography 1961 Colonoscopy 1961 Colorectal Cancer Screening 1961 FOBT/FIT 1961 Fit-DNA (Cologuard) 1961 Sigmoidoscopy 1961 Depression Screening (12+) 1973 Tobacco Cessation Counseling and Screening (12+) 1973 HIV Screening 1976 Hepatitis C Screening 1979 Pap Smear 1982 Breast Cancer Screening 2001 Lipid Panel 2006 Pneumococcal 50+ years (1 of 1 - PCV) 2011 Shingles Vaccine (Zoster) (1 of 2) 2011 COVID-19 VACCINE (3 - season) 04/19/202509/2020, 10/25/2020 Influenza Vaccine (#1) 2025 DTAP/TDAP/TD VACCINES (2 - Td or Tdap) 01/27/2029 Respiratory Syncytial Virus (RSV) Adult or (1 - 1-dose 75+ series) 2036 Insurance BLUE CROSS/BLUE SHIELD Care Teams Sole Sewer Hand Relationship Specialty Start Date End Date Felipe Murphy MD [address] [place] [id number] PCP - General General Internal Medicine 07/09/23
[2025-06-09 08:06] LABS: Hematocrit 45.0 % (37.0-47.0); Hemoglobin 14.7 g/dL (12.2-16.2); Immature Granulocytes % 0.4 %; Mean Corpuscular HGB Conc 32.7 g/dL (31.8-35.4); Mean Corpuscular Hemoglobin 29.6 pg (27.0-31.2); Mean Corpuscular Volume 90.5 fl (81-99); Nucleated Red Blood Cells % 0 %; Platelet Count 349 K/mm3 (142-424); Red Blood Count 4.97 M/mm3 (4.20-5.40); Red Cell Distribution Width-SD 41.2 fL; White Blood Count 9.0 K/mm3 (4.8-10.8)
[2025-06-09 08:19] LABS: Albumin Level 4.1 g/dl (3.5-5.0); Chloride 101 mmol/L (98-107); Potassium 4.2 mmoL/L (3.5-5.1); Sodium 140 mmol/L (136-145)
[2025-06-09 08:22] LABS: Alanine Aminotransferase 20 U/L (12-78); Albumin/Globulin Ratio 1.5 (1.1-1.8); Alkaline Phosphatase 67 U/L (38-126); Anion Gap 11.2 mEq/L (5-15); Aspartate Amino Transferase 24 U/L (14-36); Bilirubin,Total 0.4 mg/dl (0.2-1.3); Blood Urea Nitrogen 20 mg/dl (7-17); Calcium 9.4 mg/dl (8.4-10.2); Carbon Dioxide 32 mmol/L (22.0-30.0); Cholesterol 202 mg/dl (140-200); Creatinine,Serum 0.90 mg/dl (0.52-1.04); Estimated Glomerular Filt Rate 63 ml/min (>60); GFR (African American) 77 ML/MIN (>60); Globulin 2.7 g/dL (1.3-3.2); Glucose 98 mg/dl (74-100); Total Protein,Serum 6.8 g/dl (6.3-8.2); Triglycerides 113 mg/dl (30-150)
[2025-06-09 08:23] LABS: HDL Cholesterol 60 mg/dl (40-60)
== END 2025-06-09 23:59 | disposition home or self-care (01) ==
LOC: LAB 07:42
PROVIDERS: PCP Internal Medicine; Visit Provider Nurse Practitioner Obstetrics & Gynecology
DX: E55.9 Vitamin D deficiency, unspecified (principal); E78.5 Hyperlipidemia, unspecified; I10 Essential (primary) hypertension; E03.9 Hypothyroidism, unspecified; Z78.0 Asymptomatic menopausal state
CPT/HCPCS: 36415; 80053; 80061; 85025

== ENCOUNTER 2025-06-10 10:50 | Outpatient (CLI) | payer BC, SELFPAY ==
--- NOTE | 2025-06-10 11:00 | MM_ITS ---
PROCEDURE INFORMATION: Exam: MG Bilateral Screening 3D Mammography Exam date and time: 06/10/2025 10:56 AM Age: 64 years old Clinical indication: Screening examination. TECHNIQUE: Imaging protocol: Bilateral Screening tomosynthesis and 2D mammography including computer-aided detection (CAD) when performed. COMPARISON: MG MM DIG SCREENING MAMM BI W/CAD 03/10/2024 2:40 PM FINDINGS: MAMMOGRAPHY: Breast composition: There are scattered areas of fibroglandular density. Mass: None. Architectural distortion: None. Calcifications: No suspicious calcifications. Asymmetric density: None. Skin thickening: None. Axillary adenopathy: None. IMPRESSION: No mammographic evidence of malignancy. Annual screening is recommended unless otherwise clinically indicated. ASSESSMENT: BI-RADS Category 1: Negative.
--- OUTSIDE RECORDS SUMMARY | 2025-06-10 11:11 | XMS_ITS | Clinical Summary ---
Author Organization Healthcare Address [address] [place] [address] Care Team Providers Care Plastics Production Machine Operator Name Role Phone Pcp, No Primary Care [...] 2011 [facility]-Zoster Vaccines (1 of 2) 2011 [id number]-96 Vaccine (3 - Pfizer risk series) 12/16/2020 [...] Most Recently Relevant to Health Maintenance Insurance [facility] Care Teams Plastics Production Machine Operator Relationship Specialty Start Date End Date Pcp, [place] [address] PCP - General Family Medicine 04/04/22
--- OUTSIDE RECORDS SUMMARY | 2025-06-10 11:11 | XMS_ITS | Clinical Summary ---
Author Organization [employer] ([place], [place], [place], [place]) Address [address] [place] [address] Care Team Providers Care Field Horticultural Specialty Grower Name Role Phone Felipe Murphy MD Primary Care Provider [phone] Allergies No known active allergies Social History [...] Date Alex rded Speak language other than [place] at home Not on file 08/30/2023 Want [...] 2036 Insurance BLUE CROSS/BLUE SHIELD Care Teams Field Horticultural Specialty Grower Relationship Specialty Start Date End Date Felipe Murphy MD [address] [place] [id number] PCP - General General Internal Medicine 07/09/23
--- OUTSIDE RECORDS SUMMARY | 2025-06-10 11:11 | XMS_ITS | Encounter Summary ---
Author Organization Healthcare Address [address] [place] [address] Care Team Providers Care Freight Breaker Name Role Phone Pcp, No Primary Care Provider Unavailabl e Encounter Details Date Type Department Care Team (Late st Contact Info) Description 01/27/2025 Outside Procedure [address] [id number] Provider, External Social History Tobacco [...] documented as of this encounter Care Teams Freight Breaker Relationship Specialty Start Date End Date Pcp, No [address] [place] [address] PCP - General Family Medicine 04/04/22 documented as of this encounter
--- OUTSIDE RECORDS SUMMARY | 2025-06-10 11:11 | XMS_ITS | Encounter Summary ---
Author Organization Healthcare Address [address] [place] [address] Care Team Providers Care Animal Groomer Name Role Phone Pcp, No Primary Care Provider Unavailabl e Encounter Details Date Type Department Care Team (Late st Contact Info) Description 01/27/2025 Lab Requisition [facility] [address] [place] [address] Fabiola Mayen MD [address] [facility] [address] [place] [address] Encounter for screening for malignant [...] Exam (01/27/2025) Case Report Surgical Pathology Case: [id number] Authorizing Provider: Fabiola Mayen, Collected: 01/27/2025 Ordering Location: [facility] Received: 01/27/2025 1118 Pathologist: Baron Lugo DO Specimens: A) - Ascending Colon, ascending polyp B) - Sigmoid Colon, sigmoid polyp 01/28/2025 4:13 PM EDT [facility] Final Diagnosis A. LARGE INTESTINE, ASCENDING COLON, POLYP, BIOPSY: - TUBULAR ADENOMAS (2). B. LARGE INTESTINE, SIGMOID COLON, POLYP, BIOPSY: - TUBULAR ADENOMA. 01/28/2025 4:13 PM EDT [facility] at 1613 EDT Clinical Information Encounter for screening for malignant neoplasm of colon Colonoscopy findings: - Two sessile polyps were found in the ascending colon. The polyps were 5 to 6 mm in size. - A 7 mm polyp was found in the sigmoid colon. The polyp was sessile. 01/28/2025 4:13 PM EDT [facility] Gross Description A. ASCENDING POLYP Received [...] Sana B Pettey 01/28/2025 4:13 PM EDT [facility] Note: A resident was involved in the service. I attest I examined the relevant preparations for the specimens and confirmed the diagnosis or interpretation. 01/28/2025 4:13 PM EDT [facility] Tissue Sigmoid colon structure / Unknown 01/27/2025 01/27/2025 11:18 AM EDT Tissue specimen (specimen) Sigmoid colon structure / Unknown 01/27/2025 01/27/2025 11:18 AM EDT us Fabiola Martinez MD LAB PATHOLOGY ORDERAB LES Final Result [facility] [address] [place] [address] documented in this encounter Visit Diagnoses Diagnosis Encounter for screening for malignant neoplasm of colon documented in this encounter Additional Health Concerns Assessment Noted Time A fall risk assessment has been complete d for the patient 07/09/2022 9:55 AM EST documented as of this encounter Care Teams Animal Groomer Relationship Specialty Start Date End Date Pcp, Mei [address] [place] [address] PCP - General Family Medicine 8/17/22 documented as of this encounter
--- OUTSIDE RECORDS SUMMARY | 2025-06-10 11:11 | XMS_ITS | Referral Summary ---
Author Organization [employer] ([place], [place], [place], [place]) Address [address] [place] [address] Care Team Providers Care Hims Manager Name Role Phone Felipe Murphy MD Primary Care Provider [phone] Allergies No known active allergies Social History [...] Date Alex rded Speak language other than [place] at home Not on file 08/30/2023 Want [...] file Insurance BLUE CROSS/BLUE SHIELD Care Teams Hims Manager Relationship Specialty Start Date End Date Felipe Murphy MD [address] [place] [id number] PCP - General General Internal Medicine 07/09/23
== END 2025-06-10 23:59 | disposition home or self-care (01) ==
LOC: RAD 10:50
PROVIDERS: PCP Internal Medicine; Visit Provider Nurse Practitioner Obstetrics & Gynecology
DX: Z12.31 Encounter for screening mammogram for malignant neoplasm of breast (principal); R92.323 Mammographic fibroglandular density, bilateral breasts
CPT/HCPCS: 77063; 77067

== ENCOUNTER 2025-07-29 08:55 | Outpatient (CLI) | payer BC, SELFPAY ==
[2025-07-29 09:57] LABS: Free T4 (Free Thyroxine) 1.34 ng/dl (0.78-2.19)
[2025-07-29 10:11] LABS: Thyroid Stimulating Hormone 1.67 uIU/mL (0.465-4.68)
[2025-07-29 11:35] LABS: 25-OH Vitamin D, Total 27.4 ng/mL (30-100)
== END 2025-07-29 23:59 | disposition home or self-care (01) ==
LOC: LAB 08:55
PROVIDERS: PCP Internal Medicine; Visit Provider Student in an Organized Health Care Education/Training Program
DX: E55.9 Vitamin D deficiency, unspecified (principal); E89.0 Postprocedural hypothyroidism
CPT/HCPCS: 36415; 82306; 84439; 84443